=== PATIENT | female | born 1965 ===

== ENCOUNTER 2017-07-20 09:57 | Day surgery (SDC) | payer SELFPAY ==
[2017-07-06 15:05] VITALS: BMI 25.7
[2017-07-20] MEDS ORDERED: Lidocaine 1% Inj (20ml) IJ ONE (10:10)
[2017-07-20] MEDS ORDERED: Bupivacaine 0.5% Inj(30mL) IJ ONE (10:10)
[2017-07-20] MEDS ORDERED: ceFAZolin IV 2 gm in Dextrose 2 GM/50 ML BAG IVPB ONE (10:10)
--- NOTE | 2017-07-20 10:13 | CP.PCM.PN ---
Subjective - Date & Time of Evaluation Date of Evaluation: 07/20/17 Time of Evaluation: 10:13 - Subjective Subjective: 51 y/o female seen in [facility] prior to left big toe surgery today. Pt confirms NPO status after midnight last night. Pt states she has had pain in the left toe for several months and is ready to have the bone removed. Pt states it is painful whenever she tries to walk. Denies F/C/N/V/CP/SOB. PMH: HTN controlled by diet/exercise PSH: denies All: NKDA Social: social EtOH; denies cigarette or illicit drug use Fam Hx: denies Objective - Medications Medications: Current Medications Bupivacaine HCl (Marcaine 0.5%) 30 ml IJ ONCE ONE Stop: 07/20/17 10:11 Cefazolin Sodium 2 gm/ Sodium (Chloride) 100 mls @ 100 mls/hr IVPB ONCE ONE PRN Reason: Protocol Stop: 07/20/17 11:09 Sodium Chloride (Sodium Chloride 0.9%) 1,000 mls @ 1,000 mls/hr IV .Q1H ELIGIO Stop: 07/21/17 10:11 Lidocaine HCl (Lidocaine 1% (20ml)) 20 ml IJ ONCE ONE Stop: 07/20/17 10:11 - Constitutional Appears: Well, Non-toxic, No Acute Distress - Head Exam Head Exam: ATRAUMATIC, NORMOCEPHALIC - Eye Exam Eye Exam: Normal appearance Pupil Exam: PERRL - ENT Exam ENT Exam: Normal Exam - Neck Exam Neck Exam: Full ROM. absent: Tenderness - Respiratory Exam Respiratory Exam: Clear to Ausculation Bilateral, NORMAL BREATHING PATTERN. absent: Wheezes - Cardiovascular Exam Cardiovascular Exam: REGULAR RHYTHM, +S1, +S2. absent: JVD - GI/Abdominal Exam GI & Abdominal Exam: Soft, Normal Bowel Sounds. absent: Tenderness - Rectal Exam Rectal Exam: Deferred - Extremities Exam Extremities Exam: Normal Capillary Refill. absent: Calf Tenderness, Pedal Edema Additional comments: Left lower extremity exam: Vasc: DP/PT pulses palpable 2/4, temperature gradient warm to cool proximal to distal, CFT < 3 sec to all digits Neuro: Protective sensation grossly intact Derm: no open lesions, nails cut to hygienic length x 5, skin well hydrated, no ecchymosis, no erythema Ortho: Bony prominence noted to distal lateral aspect of hallux. Tenderness to palpation of prominence. Mild tenderness elicited upon flexion and extension of hallux IPJ. - Neurological Exam Neurological Exam: Alert, Awake, Oriented x3 Assessment and Plan - Assessment and Plan (Free Text) Assessment: 51 y/o female in [facility] with left hallux exostosis, to go to OR at 12:30 pm today for left hallux exostectomy Plan: Pt was seen and examined in [facility] Pt NPO status was confirmed All pre-op testing and clearance in chart Pt has exhausted all conservative treatment at this time and is opting for surgical intervention Pt was explained procedure and post-operative course All pt's questions were answered to satisfaction No guarantees were made Pt understands all risks, benefits and complications of procedure Pt will follow-up with Dr. Quiles in [facility] podiatry clinic within 1 week of surgery
[2017-07-20] MEDS ORDERED: Sodium Chloride 0.9% 1,000 ML IV SCH (10:15)
[2017-07-20 10:30] VITALS: RESP 18
--- NOTE | 2017-07-20 10:52 | CP.SDSHP ---
Same Day Surgery H & P - History Proposed Procedure: left hallux exostectomy Pre-Op Diagnosis: left hallux exostosis - Previous Medical/Surgical History Cardiac: Hypertension Pain: 4.Moderate Pain Comments: HTN controlled by diet and exercise - Allergies Allergies: Allergies No Known Allergies Allergy (Verified 07/20/17 10:10) - Physical Exam General Appearance: well nourished Vital Signs: Vital Signs 07/20/17 07/20/17 10:28 10:34 Temperature 98.4 F Pulse Rate 58 L 58 L Respiratory 18 Rate Blood Pressure 145/80 O2 Sat by Pulse 99 Oximetry Mental Status: Alert & Oriented x3 Neuro: WNL Heart: WNL Lungs: WNL GI: WNL - {Optional Preform as Required} Integument: WNL Ortho: Other (bony prominence to distal lateral left hallux with tenderness to palpation) - Impression Impression: Pt was seen and examined in [facility]. Pt NPO status was confirmed. All pre-op testing and clearance in chart. Pt has exhausted all conservative treatment at this time and is opting for surgical intervention. Pt was explained procedure and post-operative course. All pt's questions were answered to satisfaction. No guarantees were made. Pt understands all risks, benefits and complications of procedure. Pt will follow-up with Dr. Quiles within 1 week of surgery Short Stay Discharge - Short Stay Discharge Admitting Diagnosis/Reason for Visit: D16.20 Disposition: HOME/ ROUTINE Referrals: Richard Nicholas MD [Primary Care Provider] - Instructions: RICE Therapy (GEN), Cephalexin (By mouth), Oxycodone/ Acetaminophen (By mouth) Additional Instructions (Diet, Activity): -Patient in good/stable condition for discharge home -Pt to resume medications per medical reconciliation -Resume regular diet Please keep dressing clean, dry, & intact to surgical site -Use plastic bag over bandage for showering -Wear post op shoe at all times when ambulating -Call clinic if you seesigns of infection (redness, swelling, malodor) -Please make an appointment to see Dr. Quiles in [facility] podiatry clinic within 1 week for post-op check Progress Note/Discharge Note with Instructions: - Patient evaluated bedside in recovery s/p surgical procedure. - After surgical procedure patient in NAD - (+) Void, (+) Appetite - Capillary refill time <3s and NVSI intact. - Patient denies complaints at this time - Post operative instructions and plan of care explained to patient at length. - Pt. acknowledges understanding. - Patient stable for DC per podiatric surgery
[2017-07-20] MEDS ORDERED: Lidocaine 1% Inj (20ml) ONE (12:18)
[2017-07-20] MEDS ORDERED: ceFAZolin IV 1 gm in Dextrose 2 GM/100 ML BAG IVPB ONE (12:18)
[2017-07-20] MEDS ORDERED: Propofol 10 mg/ml Inj (20 ML) ONE (12:41)
[2017-07-20] MEDS ORDERED: Succinylcholine 200 mg/10 ml Inj IV ONE (12:41)
[2017-07-20] MEDS ORDERED: Midazolam 2 MG/2 ML VIAL ONE (12:53)
[2017-07-20] MEDS ORDERED: Lactated Ringer's 1,000 ML IV ONE (13:05)
[2017-07-20] MEDS: Bupivacaine 0.5% Inj(30mL) ONE ×2 (13:11→13:30)
[2017-07-20] MEDS ORDERED: Bacitracin Ointment 30 GM TUBE ONE (13:32)
--- NOTE | 2017-07-20 13:47 | PCM.SURG1 ---
Surgeon's Initial Post Op Note - Surgeon's Notes Surgeon: Dr. Quiles DPM Pc Maintenance Technician: Dr. Blood DPM PGY-2, Dr. Vigil DPM PGY-1 Type of Anesthesia: IV Sedation, Local Anesthesia Administered By: Dr. Ilya VIVAR Pre-Operative Diagnosis: left hallux exostosis Operative Findings: see dictations. injectables: total 9cc of 1:1 1% lidocaine and .5%marcaine plain; materials: 3-0 vicryl Post-Operative Diagnosis: same Operation Performed: left hallux ostosis exostectomy Specimen/Specimens Removed: osteochondroma of left hallux Estimated Blood Loss: EBL {In ML}: 0 Blood Products Given: N/A Drains Used: No Drains Post-Op Condition: Good Date of Surgery/Procedure: 07/20/17 Time of Surgery/Procedure: 12:50
[2017-07-20] MEDS ORDERED: Oxycodone/Acetaminophen 5/325 mg Tab PO PRN ×2 (13:53)
--- NOTE | 2017-07-20 15:04 | RAD ---
PROCEDURE: Radiographs of the left great toe. TECHNIQUE:: AP radiograph of the left foot, with oblique and lateral view of the left great toe. COMPARISON: None. FINDINGS: BONES: No fracture. JOINTS: Normal. SOFT TISSUES: Along the lateral tip of the great toe, superficial soft tissue changes and overlying bandage- noted history states status post foot surgery. Correlate clinically No periosteal reaction here seen. The cortex subcortical bone here does appear relatively osteopenic however. OTHER FINDINGS: None. IMPRESSION: Soft tissue changes as above. No definitive periosteal reaction or definitive cortical destruction. Regional subcortical relative radiolucency - nonspecific-noted. Clinical follow-up advised.
[2017-07-20 15:18] VITALS: BP 122/70; PULSE 56; TEMP 97.6; O2SAT 99
[2017-07-20] MEDS ORDERED: Phenylephrine 10 mg/ml Inj ONE (15:24)
--- NOTE | 2017-07-20 22:27 | OP ---
PROCEDURE DATE: 07/20/2017 SURGEON: Daljit Quiles DPM. DRIVING TEACHER: Arelis Blood DPM, PGY2, Anthony Vigil DPM, PGY1. ANESTHESIOLOGIST: Armando Caraballo MD. ANESTHESIA: IV sedation with local. PREOPERATIVE DIAGNOSES: 1. Left hallux exostosis. 2. . NAME OF PROCEDURE: Left hallux exostectomy. INDICATIONS: The patient is a 51-year-old female with the above-mentioned diagnoses. Patient has exhausted conservative treatment and now requires surgical intervention at this time. The patient signed the consent after careful explanation of risks, benefits, complications and alternatives of surgical procedure. No guarantees were given or implied. N.p.o. status was confirmed prior to bringing the patient to the operating room. PREPARATION: The patient was brought into the operating room placed on operating room table in a supine position. A timeout was performed for correct identification of patient and procedure. After induction of IV sedation, the patient received a total of 7 mL of a 1:1 mixture of 1% lidocaine plain and 0.5% Marcaine plain in a local block fashion to the patient's left hallux. The left lower extremity was then prepped and draped in the usual sterile manner and a well-padded pneumatic ankle tourniquet was applied to the patient's left ankle in a supramalleolar position. Then the procedure began. DESCRIPTION OF PROCEDURE: PROCEDURE 1: Left hallux exostectomy: Attention was directed to the distal aspect of the left hallux where an approximate 2-cm curvilinear incision was made following the contour of hallux on the lateral side. The incision was deepened through the subcutaneous tissue with care being taken to identify and retract all vital and neurovascular structures. All bleeders were cauterized and ligated as necessary. Using a #15 blade, the exostosis was freed out circumferentially. Next, utilizing a Potter elevator, the periosteal tissue was taken off the exostosis. Next, utilizing an osteotome and mallet, the exostosis was removed from the left hallux and sent for pathology. Next using a rongeur, all bony prominences were resected. The surgical site was then irrigated with copious amounts of normal sterile saline. The redundant soft tissue was resected with a #15 blade and passed off the field. The surgical site was then irrigated with copious amounts of normal sterile saline. The skin was then closed using #3-0 Prolene. Postoperative injection consisting of 2 mL of 0.5% Marcaine plain was given in a local block fashion to the patient's left hallux. Postoperative bandages included Steri-Strips, bacitracin, 4 x 4s, Mary Carmen, Coban and lastly HANNAH. POSTOPERATIVE CONDITION: The patient tolerated the anesthesia and procedure well with no apparent complications or complaints. The patient was escorted to the recovery room with vital signs stable and neurovascular structures intact to the left lower extremity. The patient will follow up with Dr. Quiles as an outpatient. Arelis Blood DPM Daljit Quiles DPM
== END 2017-07-20 16:30 | disposition home or self-care (01) ==
LOC: H.OPSURG 09:57
PROVIDERS: ATTEND Podiatrist
DX: M20.5X2 Other deformities of toe(s) (acquired), left foot (principal); I10 Essential (primary) hypertension
CPT/HCPCS: 28043; 73660; 88304; 97116; 97161; G8978; G8979; G8980; J0330; J0690; J2250; J2370; J2704; J2765; J3010; J7030; J7040; J7120